=== PATIENT | male | born 1995 | race Caucasian/White ===

== ENCOUNTER 2021-06-02 10:05 | Emergency (ER) | payer OTHER, SELFPAY ==
[2021-06-02 10:16] VITALS: BP 149/92; PULSE 81; RESP 18; TEMP 36.3; O2SAT 100
--- NOTE | 2021-06-02 10:36 | ED.GENADULT ---
HPI - General Adult General Chief complaint: Upper Respiratory Infection Stated complaint: Sore Throat,Congestion Source: patient Mode of arrival: ambulatory Limitations: no limitations History of Present Illness HPI narrative: Patient is a 26-year-old male who presents to the [facility] via POV for evaluation of upper respiratory symptoms that have been present for approximately 3 days. Additionally, he reports nasal congestion, rhinorrhea, chest congestion, and ear popping. DayQuil, Sudafed, and Emergen-C. Nothing worsens symptoms. Denies known exposure to sick contacts. Patient reports to negative Covid test since onset of symptoms. He is requesting documentation for work absence. Related Data Allergies Allergy/AdvReac Type Severity Reaction Status Date / Time POISON RANDALL Allergy Mild RASH Uncoded 06/02/21 10:38 Review of Systems Review of Systems: Denies history of COPD, bronchitis, asthma, and pneumonia. Pertinent negatives: fever, sweats, chills, change in appetite, fatigue, skin color changes, headache, cough, dizziness, lymphadenopathy, sinus problems, ear pain/drainage, chest pain, heart murmurs, heart palpitations, shortness of breath, wheezing, cyanosis, hemoptysis, hoarseness, orthopnea, pleuritic pain, nausea, vomiting, diarrhea, and myalgias. PMFSH Comments I have reviewed and agree with the patient's past medical, surgical, social, and family hx as documented by the RN. There is no relevant family history pertinent to the presenting complaint. Exam Narrative: GENERAL: Well-appearing, well-nourished, and in no acute distress. HEAD: Normocephalic, atraumatic. No sinus tenderness or facial swelling appreciated. EYES: PERRLA and EOMI. No evidence of erythema, swelling, or drainage. ENT: Bilateral external ears and ear canals normal. Bilateral TMs are normal.No TM perforation. Nares clear or epistaxis. Bilateral turbinates are moderately edematous. Small amount of clear nasal drainage noted to bilateral naris. Mucous membranes moist and pink. Uvula is midline without erythema and swelling. No evidence of petechial rash, cobblestoning, lesions, ulcers, erythema, swelling, exudates, peritonsillar abscess, tenting, or drooling. Breath odor and voice normal. NECK: Supple. No Lymphadenopathy or nuchal rigidity appreciated. CHEST: Bilateral lung matos are clear to auscultation. No respiratory distress. No evidence of cough or pleuritic cp upon examination. HEART: Regular rate and rhythm. No murmur, gallop, or rub heard. EXTREMITIES: Normal range of motion. No edema. SKIN: Warm, dry, no rash. NEURO: No focal deficits. Alert and oriented x3. Course Course Emergency Course: The patient/guardian displays adequate decision making capability and despite a detailed discussion of alternatives, benefits, risks, and consequences refuses covid pcr test and smoking cessation Vital Signs Vital signs: Vital Signs Temperature 97.4 F L 06/02/21 10:16 Pulse Rate 81 06/02/21 10:16 Respiratory Rate 30 H 06/02/21 10:16 Blood Pressure 149/92 H 06/02/21 10:16 Pulse Oximetry 100 06/02/21 10:16 Temperature 97.4 F L 06/02/21 10:16 Pulse Rate 81 06/02/21 10:16 Respiratory Rate 30 H 06/02/21 10:16 Blood Pressure 149/92 H 06/02/21 10:16 Pulse Oximetry 100 06/02/21 10:16 Due to an elevated blood pressure, I had a detailed discussion with the patient and/or guardian regarding the need for follow-up with their primary care provider within the next 3-4 days. Patient verbalized understanding and agreed. Medical Decision Making Differential Diagnosis Differential Diagnosis: Allergic rhinitis, ABRS, acute viral sinusitis, strep pharyngitis, nasopharyngitis, bronchitis, pneumonia, AOM, otitis externa, viral URI, influenza Medical Records Medical records reviewed: Yes I reviewed the external patient's medical records. Vital Signs Vital Signs: Vital Signs Temperature 97.4 F L 06/02/21 10:16 Pulse Rat
== END 2021-06-02 11:10 | disposition home or self-care (01) ==
PROVIDERS: Emergency Provider Nurse Practitioner Family
DX: J06.9 Acute upper respiratory infection, unspecified (principal)
CPT/HCPCS: 99213; G0463

== ENCOUNTER 2022-04-20 15:59 | Emergency (ER) | payer OTHER, SELFPAY ==
[2022-04-20 16:07] VITALS: BP 149/78; PULSE 96; RESP 16; TEMP 37.2; O2SAT 99
--- NOTE | 2022-04-20 16:23 | ED.URI ---
HPI - URI/Sore Throat General Chief Complaint: Upper Respiratory Infection Stated Complaint: Sinus Time Seen by Provider: 04/20/22 16:23 History of Present Illness HPI Narrative: Narendra Saavedra is a 26 yo male with no PMH who comes with cough feeling like he is congested and generally has sinus pressure. He had negative COVID test earlier in the week and states that he must get away at work over the weekend so is looking for some meds to help him feel better he is currently taking Mucinex Patient had COVID last year Related Data Allergies Allergy/AdvReac Type Severity Reaction Status Date / Time POISON RANDALL Allergy Mild RASH Uncoded 04/20/22 16:02 Review of Systems Review of Systems: CONSTITUTIONAL: Denies fever, chills, sweats. EYES: Denies visual changes, redness, discharge. ENT: Denies rhinorrhea, has congestion, sore throat, otalgia. CARDIOVASCULAR: Denies chest pain, palpitations, edema. RESPIRATORY: Denies dyspnea, wheezing, has productive cough GASTROINTESTINAL: Denies abdominal pain, nausea, vomiting, diarrhea. GENITOURINARY: Denies dysuria, hematuria, abnormal discharge SKIN: Denies rash or itching. NEUROLOGIC: Denies numbness, or focal weakness. PSYCHIATRIC: Denies anxiety or depression. PMFSH Comments At time of signature, I agree with nursing past medical, surgical, social and family history. There is no relevant family history pertinent to the presenting complaint. Exam Narrative: GENERAL: This is a well-nourished, well-developed patient, in mild distress. HEAD: normocephalic, atraumatic. EYES: . Sclera clear/white. Vision is grossly intact. EARS: External ears normal, auditory canals erythema and without drainage, fluid behind TMs . Hearing grossly intact. NOSE: External nose normal without nasal discharge, nares without redness, mild rhinorrhea. THROAT: Mucous membranes moist, posterior pharynx erythema NECK: Neck supple, non-tender CARDIOVASCULAR: Regular rate and rhythm without murmurs, gallops, or rubs. RESPIRATORY: Clear to auscultation. Breath sounds equal bilaterally. No wheezes, rales, or rhonchi. GASTROINTESTINAL: Not done SKIN: warm, intact with no suspicious lesions or rash, good texture and turgor. NEURO: awake, alert, and oriented to person, place and time. There were no obvious focal neurologic abnormalities. Steady gait EXTREMITIES: Normal range of motion. BACK: Nontender without deformity Course Course Emergency Course: He comes with cough congestion and needs medication to feel a bit better Patient started on Tessalon, prednisone, albuterol inhaler Level of Care: Express Care Visit Vital Signs Vital signs: Vital Signs Temperature 98.9 F 04/20/22 16:07 Pulse Rate 96 04/20/22 16:07 Respiratory Rate 16 04/20/22 16:07 Blood Pressure 149/78 H 04/20/22 16:07 Pulse Oximetry 99 04/20/22 16:07 Oxygen Delivery Room Air 04/20/22 16:07 Temperature 98.9 F 04/20/22 16:07 Pulse Rate 96 04/20/22 16:07 Respiratory Rate 16 04/20/22 16:07 Blood Pressure 149/78 H 04/20/22 16:07 Pulse Oximetry 99 04/20/22 16:07 Oxygen Delivery Room Air 04/20/22 16:07 MDM - URI/Sore Throat Differential Diagnosis Differential diagnosis: Likely upper respiratory infection, otitis media, sinusitis, viral infection, bronchitis, pharyngitis and other Critical Care Time Critical Care Time Critical Care Time: No Discharge Plan Discharge Clinical Impression: Upper respiratory infection Qualifiers: URI type: unspecified URI Qualified Code(s): J06.9 - Acute upper respiratory infection, unspecified Patient Disposition: Home, Self-Care Condition: Stable Instructions: Upper Respiratory Infection (DC) Additional Instructions: Take prednisone as directed Use albuterol inhaler for tightness are short of breath Use Tessalon Perles as needed for cough push fluids Prescriptions: New benzonatate 200 mg capsule 200 mg PO TID PRN (Reason: cough) Qty: 20 0RF
== END 2022-04-20 16:45 | disposition home or self-care (01) ==
PROVIDERS: Emergency Provider Nurse Practitioner
DX: J06.9 Acute upper respiratory infection, unspecified (principal)
CPT/HCPCS: 99213; G0463

== ENCOUNTER 2023-02-15 19:27 | Emergency (ER) | payer OTHER, SELFPAY ==
[2023-02-15 19:38] VITALS: BP 142/73; PULSE 99; RESP 16; TEMP 37.3; O2SAT 100
--- NOTE | 2023-02-15 19:38 | ED.SKABFB ---
HPI - Skin/Abscess/Foreign Bdy General Chief complaint: Wound/Laceration Stated complaint: Insect Bite Time Seen by Provider: 02/15/23 19:38 Source: patient Mode of arrival: ambulatory Limitations: no limitations History of Present Illness HPI narrative: Patient is a 27-year-old male who presents with wasp's sting to right wrist with forearm swelling and redness. Denies any pain. States swelling has worsened into fingers. States he still is able to feel everything normally and move all fingers and hands normally. Has taken Benadryl last night and Claritin today. Denies any shortness of breath, or throat, chest or throat tightening. States he has been stung by a wasp in the past and it appeared the same to begin with. Related Data Allergies Allergy/AdvReac Type Severity Reaction Status Date / Time POISON RANDALL Allergy Mild RASH Uncoded 02/15/23 19:56 Review of Systems Review of Systems: All systems reviewed & are unremarkable except as noted in HPI and below Constitutional: Constitutional: Denies body ache(s), Denies chills, Denies fatigue, Denies fever(s), Denies headache(s), Denies malaise and Denies weakness Eyes: Eyes: Denies blurry vision, Denies irritation and Denies loss of vision ENT: Denies otalgia, Denies headache(s), Denies nasal discharge, Denies sinus pain and Denies sore throat Cardiovascular: Cardiovascular: Denies chest pain, Denies irregular heart rhythm and Denies dyspnea Respiratory: Respiratory: Denies dyspnea Gastrointestinal: Gastrointestinal: Denies abdominal pain, Denies melena, Denies hematochezia, Denies diarrhea, Denies nausea and Denies vomiting Musculoskeletal: Musculoskeletal: Denies back pain, Denies myalgias and Denies arthralgias Integumentary/Breasts: Skin/Breast: Denies pruritus, Denies rash, Reports skin swelling and Reports sores Neurologic: Denies headache(s), Denies loss of vision and Denies weakness Psychiatric: Psychiatric: Reports no additional psychiatric complaints Endocrine: Endocrine: Denies fatigue PMFSH Comments At time of signature, agree with nursing past medical, surgical, social and family history. There is no relevant family history pertinent to the presenting complaint. Exam Const: General: cooperative, healthy appearing, comfortable, no acute distress and well nourished Nutritional Appearance: well nourished Orientation/consciousness: patient oriented x3 Limitations: no limitations HENMT: Head: normal to inspection, normocephalic and atraumatic Ears: hearing grossly normal bilaterally and external ears normal Face/Nose/Sinus: Normal external nose present, normal facial exam and face symmetric Face and sinus: normal facial exam and face symmetric Mouth: Yes lip normal Eyes: General: appearance normal, both eyes and all related structures Alignment and Position: alignment normal and position normal Periorbital: periorbital findings normal Eyelids: eyelids normal Pupils: Equal, round and reactive pupils present EOM: EOMs intact bilaterally Neck: Neck: normal visual inspection, full ROM and supple Chest: Chest palpation & inspection: normal inspection of the chest Resp: Effort & Inspection: normal respiratory effort and able to speak in complete sentences Auscultation: clear to auscultation bilaterally Cardio: Rate: regular rate Rhythm: regular rhythm Heart sounds: S1 normal heart sound present and S2 normal heart sound present GI: Inspection: normal to inspection Skin: General skin exam: normal color Lesions: lesion noted pustule right wrist size (4 cm x 2 cm), borders ill-defined and irregular, color yellow and surface waxy; not crusted and with discharge; nontender Neuro: General: patient oriented x3 and moves all extremities Cranial nerves: Yes Equal, round and reactive pupils present Speech: normal speech Gait exam (Neuro): Normal gait present Extrem: General: normal to inspection, full ROM and no edema Right upper extremity: elbow/forearm swe
== END 2023-02-15 20:23 | disposition home or self-care (01) ==
PROVIDERS: Emergency Provider Nurse Practitioner Family
DX: T63.461A Toxic effect of venom of wasps, accidental (unintentional), initial encounter (principal)
CPT/HCPCS: 99213; G0463